=== PATIENT | female | born 1980 | race Caucasian/White ===

== ENCOUNTER → 2017-02-27 | Outpatient (CLI) | payer OTHER ==
[~2017-02-27] MED LIST: BIOTCAP2 PO; DICY20TA35 PO; DOXE10CA PO; FENT50DI19 TD; FLAX100019 PO; FLUO20CA36 PO; FOLI1TAB7 PO; GABA800T PO; HYDR-3126 PO; HYDR200T5 PO; KLN1 PO; MAGN250T3 PO; MTH25 PO; OMEP20CA9 PO; ONDA4TAB46 PO; OXYC-164 PO; POTA550T4 PO; PRZ/40 PO; TURM1CAP4 PO
--- NOTE | 2017-03-19 16:00 | EEG Procedure Note ---
EEG Procedure Note Date of Service Feb 27, 2017. Start / End Times Start Time: 02/27/17 @ 2:57pm End Time: 03/01/17 @ 11:43am Referring Physician Lisa Burr DO History 36 year old female with seizure like activity. Ambulatory EEG for spell capture and further evaluation of seizure like activity. Home Medication List Scheduled Biotin (Biotin 5000), 5 MG PO DAILY Clonazepam (Clonazepam), 2 MG PO BID Dicyclomine Hcl (Bentyl), 20 MG PO QID Doxepin Hcl (Sinequan), 10 MG PO BID Fentanyl (Duragesic), 50 MCG TD [id number] Flaxseed (Linseed) (Flaxseed Oil 1000 mg), 1 CAP PO DAILY Fluoxetine HCl (Fluoxetine HCl), 20 MG PO DAILY Fluoxetine Hcl (Prozac), 40 MG PO DAILY Folic Acid (Folvite), 1 MG PO HS Gabapentin (Neurontin), 800 MG PO QID Hydroxychloroquine Sulfate (Plaquenil), 200 MG PO BID Hydroxyzine Hcl (Atarax), 50 MG PO HS Magnesium (Magnesium 250 mg), 1 TAB PO DAILY Methotrexate (Methotrexate), 4 TABS PO WK Omeprazole (Prilosec), 20 MG PO DAILY Oxycodone Hcl (Oxycodone Hcl), 10 MG PO DAILY Potassium Gluconate (Potassium Gluconate), 550 MG PO DAILY Turmeric (Curcuma Longa) (Turmeric), 500 MG PO DAILY Scheduled PRN Ondansetron Hcl (Zofran), 4 MG PO Q6 PRN for Nausea Description This is a 21 electrode ambulatory EEG with a single channel dedicated to limited EKG. The electrodes were placed in accordance with the International 10- 20 system. Day 2 was of fair EEG quality secondary to diffuse intermittent electrode artifact and movement which became severe after 9pm on February 28, severely limiting the read of the EEG after that time. At the start of the recording the patient was in an awake state. The background was well organized and composed of symmetric mixed alpha and beta frequencies. There was a well formed symmetric moderate amplitude posterior dominant rhythm of 9-10Hz that was reactive to eye opening and closure. Sleep was indicated by vertex waves and symmetric sleep spindles. Patient journal was not returned and no clinical events were reported. Interpretation This is a normal 48hr ambulatory EEG There was no electrographic seizures or epileptiform discharges. Clinical Correlation A normal EEG does not rule out epilepsy if there is a strong clinical suspicion or for clinical events not captured. The read and interpretation on Day 2 of this ambulatory EEG was limited secondary to diffuse artifact.
== END | disposition home or self-care (01) ==
LOC: C.NEUR 14:15
PROVIDERS: ATTEND Psychiatry & Neurology Neurology
DX: R56.9 Unspecified convulsions (principal)

== ENCOUNTER → 2017-08-16 | Outpatient (CLI) | payer OTHER ==
[~2017-08-16] MED LIST changes: +OPTIRAY 320 IV PRN
--- NOTE | 2017-08-16 13:31 | DIAGNOSTIC IMAGING REPORT ---
CT SCAN OF THE ABDOMEN AND PELVIS WITH IV CONTRAST CLINICAL HISTORY: Fever of unknown origin. COMPARISON STUDY: Abdominal ultrasound dated 06/18/2015. TECHNIQUE: Following the IV administration of 92 cc of Optiray 320, CT scan of the abdomen and pelvis is performed from the lung bases to the proximal femora. Images are reviewed in the axial, sagittal, and coronal planes. IV contrast was administered without complication. A dose lowering technique was utilized adhering to the principles of ALARA. FINDINGS: Lung bases: The heart is normal in size and without pericardial effusion. The lung bases are clear noting dependent atelectasis. Liver: The contrast-enhanced liver is enlarged, measuring 21.8 cm in length. The liver demonstrates diffusely diminished attenuation consistent with hepatic steatosis. More focal fatty infiltration is noted adjacent to falciform ligament. There is no intrahepatic biliary ductal dilatation. The hepatic veins and portal veins are patent. Gallbladder: Unremarkable. Spleen: Normal in size and attenuation. Pancreas: Unremarkable. Adrenal glands: Unremarkable. Kidneys: The contrast enhanced kidneys are normal in size and without hydronephrosis. The kidneys enhance symmetrically. Abdominal vasculature: The abdominal aorta is normal in course and caliber. Bowel: The small bowel and colon are normal in course and caliber. The appendix is normal as visualized. Peritoneum: There is no intraperitoneal free air or abdominal ascites. There is a fat-containing umbilical hernia. Lymphadenopathy: None. Pelvic viscera: The bladder is decompressed and grossly unremarkable. The uterus and adnexa are normal as imaged noting bilateral ovarian follicles. Skeletal structures: No lytic or blastic lesions are seen. IMPRESSION: 1. There are no acute infectious or inflammatory findings in the abdomen or pelvis. 2. Hepatomegaly and hepatic steatosis. Electronically signed by: Nas Boyer M.D. 08/16/2017 1:30 PM Dictated Date/Time: 08/16/2017 1:25 PM
--- NOTE | 2017-08-16 13:38 | DIAGNOSTIC IMAGING REPORT ---
THYROID ULTRASONOGRAPHY CLINICAL HISTORY: Thyroid nodule. Fever of unknown origin. COMPARISON STUDY: No previous studies for comparison. FINDINGS: The right lobe measures 20 x 52 x 14 mm. There is a circumscribed rounded partially solid and cystic lower pole right lobe nodule measuring 15 x 14 x 12 mm. Left lobe measures 17 x 41 x 15 mm. IMPRESSION: Low suspicion but indeterminate 15 mm solitary lower pole right lobe thyroid nodule. This nodule would be amenable to fine-needle aspiration as deemed clinically indicated. Electronically signed by: Aguilar Borrero M.D. 08/16/2017 1:37 PM Dictated Date/Time: 08/16/2017 1:34 PM
--- NOTE | 2017-08-16 13:44 | DIAGNOSTIC IMAGING REPORT ---
CT OF THE CHEST WITH IV CONTRAST CLINICAL HISTORY: MIGRAINES FEVER OF UNKNOWN ORIGIN COMPARISON STUDY: No previous studies for comparison. TECHNIQUE: Following the IV administration of 92 mL of Optiray-320, CT of the thorax was performed from the thoracic inlet to the lung bases. Images are reviewed in the axial, sagittal, and coronal planes. IV contrast was administered without complication. A dose lowering technique was utilized adhering to the principles of ALARA. CT DOSE: 1200.70 mGycm FINDINGS: Thyroid: There is a 15 mm right lobe thyroid nodule. Thoracic aorta: The thoracic aorta is normal in course and caliber, noting standard 3-vessel arch anatomy. No aneurysm or dissection is seen. Pulmonary vasculature: The pulmonary trunk is normal in caliber. There are no central filling defects identified to suggest pulmonary embolus. Note that this examination was not protocoled for the evaluation of pulmonary emboli. HEART: The heart is normal in size and configuration, without pericardial effusion. Lungs and pleural spaces: There are dependent groundglass opacities, likely atelectatic. There is no lobar consolidation. Mediastinum: There is no mediastinal lymphadenopathy. Radha: Clear. Axilla: Clear. Upper abdomen: Partially visualized upper abdominal viscera is within normal limits. Skeletal structures: There are no lytic or blastic osseous lesions. IMPRESSION: 1. 15 mm right lobe thyroid nodule 2. No acute intrathoracic findings. Electronically signed by: Aguilar Borrero M.D. 08/16/2017 1:42 PM Dictated Date/Time: 08/16/2017 1:39 PM
== END | disposition home or self-care (01) ==
LOC: C.ULTR 12:06
PROVIDERS: ATTEND Family Medicine
DX: E04.1 Nontoxic single thyroid nodule (principal); R50.9 Fever, unspecified; R16.0 Hepatomegaly, not elsewhere classified; K76.0 Fatty (change of) liver, not elsewhere classified

== ENCOUNTER 2020-05-28 04:13 | Inpatient (IN) ==
--- OUTSIDE RECORDS SUMMARY | 2020-05-28 04:15 | External Medical Summary | Continuity of Care Document ---
:1980 Author Name Mireille Mejia, Provider Address Unavailable Unavailable , Care Team Providers Name Role Phone Shazia Hurley DO Unavailable [email or web address] Luis Fernando Mejia, Sara Unavailable [email or web address] Lisa Burr DO Unavailable [email or web address] DARIN INFANTE Unavailable Unavailable ROZIYAZAN, S Unavailable Unavailable Unavailable Unavailable Unavailable Problems Migraine headache (346.90) (G43.909) Drug dependence (304.90) (F19.20) Depression with anxiety (300.4) (F41.8) Pain disorder (780.96) (R52) Systemic lupus erythematosus (710.0) (M32.9) Current smoker (305.1) (F17.200) Seizure-like activity (780.39) (R56.9) Chronic migraine (346.70) (G43.709) Sjoegren syndrome (710.2) (M35.00) Panic attacks (300.01) (F41.0) Hepatitis C virus (070.70) (B19.20) Indigestion (536.8) (K30) Limb pain (729.5) (M79.609) Blood in urine (599.70) (R31.9) Insomnia (780.52) (G47.00) Esophageal reflux (530.81) (K21.9) Lumbago (724.2) (M54.5) Fatty liver disease, nonalcoholic (571.8) (K76.0) Enthesopathy of hip (726.5) (M76.899) Cramp of limb (729.82) (R25.2) Allergies and Adverse Reactions Imitrex (Allergy) Penicillins (Allergy) Topamax (Allergy) Medications Hydroxychloroquine Sulfate 200 MG Oral T ablet; TAKE 1 TABLET TWICE DAILY WITH FOOD. DO Shazia Hurley Start: 31-Jul-2014 Refills: 0 oxyCODONE HCl - 15 MG Oral Tablet; TAKE 1 TABLET EVERY 6 HOURS NEEDED FOR PAIN. DO Shazia Hurley Start: 31-Jul-2014 Refills: 0 predniSONE 10 MG Oral Tablet; TAKE 1 TABLET Daily PRN DO Shazia Harmon Start: 31-Jul-2014 Refills: 0 Neurontin 400 MG Oral Capsule; TAKE 2 CAPSULE 4 times daily Start: 31-Jul-2014 Refills: 0 LORazepam 1 MG Oral Tablet; TAKE 1 TABLE T by mouth 30 MINUTES PRIOR TO MRI. May repeat once after 30min if needed. DO Lisa Burr Start: 20-Dec-2016 Quantity: 2 Refills: 0 fentaNYL 50 MCG/HR Transdermal Patch 72 Hour; APPLY 1 PATCH EVERY 3 DAYS Quantity: 10 Refills: 0 Methotrexate 2.5 MG Oral Tablet; TAKE 6 TABLET Weekly Refills: 0 PROzac 40 MG Oral Capsule; TAKE 1 CAPSULE Daily Refills: 0 KlonoPIN 2 MG Oral Tablet; TAKE 1 TABLET Twice daily PRN Refills: 0 Probiotic CAPS Refills: 0 Magnesium 250 MG Oral Tablet; TAKE 1 TABLET DAILY. Refills: 0 Biotin 5000 MCG Oral Capsule; TAKE 1 CAPSULE DAILY. Refills: 0 Prochlorperazine Maleate 10 MG Oral Tabl et; TAKE 1 TABLET EVERY 6 HOURS NEEDED FOR NAUSEA or migraine headache. DO Lisa Burr Start: 2016 Quantity: 30 Refills: 5 Diclofenac Potassium 50 MG Oral Tablet; TAKE 1 TABLET every 8hrs as needed for headache. DO Lisa Burr Start: 20-Dec-2016 Quantity: 30 Refills: 3 Inderal XL 80 MG Oral Capsule Extended Release 24 Hour ; 1 cap daily DO Lisa Burr Start: 20-Dec-2016 Quantity: 30 Refills: 5 hydrOXYzine HCl - 50 MG Oral Tablet; JENNIFER E 1 TABLET 3 TIMES DAILY NEEDED FOR ITCHING. DO Shazia Hurley Start: 31-Jul-2014 Refills: 0 Procedures Procedures not documented Immunizations Influenza (Split) On: 22-Oct-2013 0:00 Family History Mother Family history of diabetes mellitus (V18.0) (Z83.3) Status: Active Family history of hypertension (V17.49) (Z82.49) Status: Act mary Family history of hepatic cirrhosis (V18.59) (Z83.79) Status : Active Family history of deep venous thrombosis (V17.49) (Z82.49) S tatus: Active Family history of Sjogren's disease (V17.89) (Z82.69) Status : Active Family history of depression (V17.0) (Z81.8) Status: Active Father Family history of diabetes mellitus (V18.0) (Z83.3) Status: Active Family history of hypertension (V17.49) (Z82.49) Status: Act mary Family history of hypercholesterolemia (V18.19) (Z83.42) Sta tus: Active Family history of substance abuse (V17.0) (Z81.4) Status: Ac tive Sibling Family history of diabetes mellitus (V18.0) (Z83.3) Status: Active Family history of hypertension (V17.49) (Z82.49) Status: Act mary Family history of deep venous thrombosis (V17.49) (Z82.49) S tatus: Active Sister Family history of deep venous thrombosis (V17.49) (Z82.49) S tatus: Active Family history of depression (V17.0) (Z81.8) Status: Active Family history of anemia (V18.2) (Z83.2) Status: Active Family history of blood dyscrasia (V18.3) (Z83.2) Status: Ac tive aunt Family history of substance abuse (V17.0) (Z81.4) Status: Ac tive Grandmother Family history of skin cancer (V16.8) (Z80.8) Status: Active Social History - Smoking Status Smoker Plan of Treatment Planned Observations Planned Goals not documented Results No Known Results Results not documented Encounters Appointment; Sara Gould M.D. 10-Apr-2019 9:30 Encounter Diagnosis: Problem not documented
[2020-05-28 04:50] LABS: Appearance Urine Cloudy (Clear); Bacteria Urine Automated 1+ (Negative); Blood Urine Trace (Negative); Color Urine Dark Yellow; Glucose Urine UA Negative (Negative); Ketones Urine 1+ (Negative); Leukocyte Esterase Urine Trace (Negative); Nitrite Urine Negative (Negative); Protein Urine 2+ (Negative); Specific Gravity Urine 1.037 (1.000-1.030); Urobilinogen Urine Negative (Negative)
[2020-05-28 05:02] LABS: Bilirubin Urine Negative (Negative); Ictotest Urine Negative (Negative)
[2020-05-28 05:11] LABS: Cast Urine Automated 0 /lpf (0-5); WBC Urine Automated >30 /hpf (0-5)
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
[2020-05-28 05:14] LABS: Amphetamines+Metham, Urine Pos (Neg); Barbiturates, Urine Neg (Neg); Benzodiazepine, Urine Pos (Neg); Cocaine, Urine Neg (Neg); MDMA (Ecstacy), Urine Pos (Neg); Methadone, Urine Neg (Neg); Opiate, Urine Pos (Neg); Phencyclidine, Urine Neg (Neg)
[2020-05-28 05:26] LABS: Basophils # (auto) 0.02 K/uL (0-0.2); Basophils % (auto) 0.2 %; Eosinophils # (auto) 0.01 K/uL (0-0.5); Eosinophils % (auto) 0.1 %; Hematocrit (blood only) 37.3 % (37-47); Hemoglobin 12.1 g/dL (12.0-16.0); Immature Granulocytes # (auto) 0.01 K/uL (0.00-0.02); Immature Granulocytes % (auto) 0.1 %; Lymphocytes # (auto) 1.85 K/uL (1.2-3.4); Lymphocytes % (auto) 19.7 %; Mean Corpuscular Hemoglobin 27.6 pg (25-34); Mean Corpuscular Hgb Conc 32.4 g/dL (32-36); Mean Corpuscular Volume 85.2 fL (80-100); Mean Platelet Volume 8.9 fL (7.4-10.4); Monocytes # (auto) 0.91 K/uL (0.11-0.59); Monocytes % (auto) 9.7 %; Neutrophils # (auto) 6.57 K/uL (1.4-6.5); Neutrophils % (auto) 70.2 %; Platelet Count 340 K/uL (130-400); RDW Coefficient of Variation 12.9 % (11.5-14.5); RDW Standard Deviation 40.1 fL (36.4-46.3); Red Blood Count 4.38 M/uL (4.2-5.4); White Blood Count 9.37 K/uL (4.8-10.8)
[2020-05-28 05:43] LABS: Calcium 8.8 mg/dl (8.5-10.1); Creatinine Clr Calc Pharmacy 87.4 ml/min; Est GFR (Non-African American) 110.4; Potassium 3.2 mmol/L (3.5-5.1)
[2020-05-28] MEDS ORDERED: cephALEXin 250 MG CAP PO ONE (05:48)
[2020-05-28 05:53] LABS: Albumin Globulin Ratio 1.1 (0.9-2); Bilirubin,Total 0.4 mg/dl (0.2-1); Globulin 3.7 gm/dl (2.5-4.0); Thyroid Stimulating Hormone 1.93 uIu/ml (0.300-4.500); Total Protein 7.7 gm/dl (6.4-8.2)
[2020-05-28 05:56] LABS: Acetaminophen < 2 ug/ml (10-30)
[2020-05-28 05:57] LABS: Salicylate 4.2 mg/dl (2.8-20)
[2020-05-28] MEDS ORDERED: POTASSIUM CHLORIDE 20 MEQ TABCR PO STA (06:03)
[2020-05-28 06:27] LABS: Pregnancy Test, Serum Negative (Negative)
[2020-05-28] MEDS ORDERED: GABAPENTIN 800 MG TAB PO STA (08:10)
[2020-05-28] MEDS ORDERED: OXYCODONE HCL IR 5 MG TAB (IMMEDIATE RELEASE) PO STA (08:10)
[2020-05-28] MEDS ORDERED: clonazePAM 1 MG TAB PO STA (08:10)
[2020-05-28] MEDS ORDERED: FLUOXETINE HCL 20 MG CAP PO ONE (08:10)
[2020-05-28] MEDS ORDERED: HYDROXYCHLOROQUINE SULFATE 200 MG TAB PO STA (08:10)
[2020-05-28] MEDS ORDERED: NICOTINE 21 MG/24 HR TDSY TD STA (08:17)
[2020-05-28] MEDS ORDERED: ACETAMINOPHEN 325 MG TAB PO PRN (13:27)
[2020-05-28] MEDS ORDERED: BISMUTH SUBSALICYLATE PER ML OMNICELL CHARGE PO PRN (13:27)
[2020-05-28] MEDS ORDERED: ALUMINUM/MAGNESIUM SUSP 30 ML UDC PO PRN (13:27)
[2020-05-28] MEDS ORDERED: SODIUM CHLORIDE 0.65% NA SOLN 45 ML (OCEAN) PRN (13:27)
[2020-05-28] MEDS ORDERED: MAGNESIUM HYDROXIDE SUSP 30 ML UDC PO PRN (13:27)
[2020-05-28] MEDS ORDERED: QUETIAPINE FUMARATE 25 MG TABLET PO PRN (13:36)
[2020-05-28] MEDS ORDERED: FENTANYL 50 MCG TD SCH (13:45)
--- NOTE | 2020-05-28 16:21 | Electrocardiogram Report ---
Test Reason : Blood Pressure : / mmHG Vent. Rate : 071 BPM Atrial Rate : 234 BPM P-R Int : 140 ms QRS Dur : 084 ms QT Int : 402 ms P-R-T Axes : -30 059 019 degrees QTc Int : 436 ms Poor data quality, interpretation may be adversely affected Probable Normal sinus rhythm Nonspecific T wave abnormality Inferior leads Abnormal ECG When compared with ECG of 14-JUL-2016 06:10, No significant change Confirmed by Artur Haque ([id number]) on 05/28/2020 4:21:02 PM Referred By: REFERRED SELF Confirmed By:Artur Haque
[2020-05-28] MEDS: OXYCODONE HCL IR 5 MG TAB (IMMEDIATE RELEASE) PO PRN (16:25)
--- NOTE | 2020-05-28 16:58 | Emergency Department Note ---
ED Visit Note I received this patient in signout at the change of shift from Dr. Aliyah Samson, pending mental health evaluation and final disposition. The patient was signed in on a 302 and accepted by 3 S. for further management. Please see previous documentation for further details of the history, physical and visit. . : Depression Qualifiers: Depression Type: unspecified Qualified Code(s): F32.9 - Major depressive disorder, single episode, unspecified UTI (urinary tract infection) Qualifiers: Urinary tract infection type: acute cystitis Hematuria presence: with hematuria Qualified Code(s): N30.01 - Acute cystitis with hematuria
[2020-05-28] MEDS: CHECK FENTANYL PATCH PLACEMENT SCH (18:05)
[2020-05-28] MEDS: cephALEXin 500 MG CAP PO SCH (21:04)
[2020-05-28] MEDS: clonazePAM 1 MG TAB PO SCH (21:05)
[2020-05-28] MEDS: HYDROXYCHLOROQUINE SULFATE 200 MG TAB PO SCH (21:06)
[2020-05-28] MEDS: QUETIAPINE FUMARATE 100 MG TABLET PO SCH (21:06)
[2020-05-29] MEDS: CHECK FENTANYL PATCH PLACEMENT SCH ×3 (01:13→17:36)
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
[2020-05-29 08:04] LABS: Potassium 3.3 mmol/L (3.5-5.1)
[2020-05-29] MEDS: DICYCLOMINE HCL 10 MG CAP PO SCH (08:47)
[2020-05-29] MEDS: cephALEXin 500 MG CAP PO SCH ×2 (08:49→21:11)
[2020-05-29] MEDS: FLUOXETINE HCL 20 MG CAP PO SCH (08:49)
[2020-05-29] MEDS: clonazePAM 1 MG TAB PO SCH ×2 (08:49→21:09)
[2020-05-29] MEDS: OXYCODONE HCL IR 5 MG TAB (IMMEDIATE RELEASE) PO PRN ×3 (08:50→21:10)
[2020-05-29] MEDS: HYDROXYCHLOROQUINE SULFATE 200 MG TAB PO SCH ×2 (08:56→21:57)
[2020-05-29] MEDS ORDERED: GABAPENTIN 800 MG TAB PO SCH (09:00)
[2020-05-29] MEDS ORDERED: NICOTINE POLACRILEX 2 MG GUM MT PRN (09:17)
[2020-05-29] MEDS ORDERED: GABAPENTIN 800 MG TAB PO ONE (10:20)
[2020-05-29] MEDS ORDERED: POTASSIUM CHLORIDE 20 MEQ TABCR PO ONE (10:23)
[2020-05-29] MEDS: NICOTINE 21 MG/24 HR TDSY TD SCH (11:49)
[2020-05-29] MEDS ORDERED: IBUPROFEN 600 MG TAB PO PRN (13:59)
[2020-05-29] MEDS: QUETIAPINE FUMARATE 25 MG TABLET PO SCH (17:38)
[2020-05-29] MEDS: GABAPENTIN 800 MG TAB PO SCH (21:12)
[2020-05-29] MEDS: QUETIAPINE FUMARATE 100 MG TABLET PO SCH (21:13)
[2020-05-30] MEDS: CHECK FENTANYL PATCH PLACEMENT SCH ×3 (00:11→17:32)
[2020-05-30] MEDS ORDERED: fentaNYL 50 MCG/HR TDSY TD SCH (09:00)
[2020-05-30] MEDS: OXYCODONE HCL IR 5 MG TAB (IMMEDIATE RELEASE) PO PRN ×2 (09:08→16:15)
[2020-05-30] MEDS: HYDROXYCHLOROQUINE SULFATE 200 MG TAB PO SCH ×2 (09:08→21:16)
[2020-05-30] MEDS: PHENTERMINE 37.5 MG PO PRN (09:08)
[2020-05-30] MEDS: FLUOXETINE HCL 20 MG CAP PO SCH (09:09)
[2020-05-30] MEDS: DICYCLOMINE HCL 10 MG CAP PO SCH (09:09)
[2020-05-30] MEDS: cephALEXin 500 MG CAP PO SCH ×2 (09:10→21:10)
[2020-05-30] MEDS: GABAPENTIN 800 MG TAB PO SCH ×2 (09:10→21:15)
[2020-05-30] MEDS: clonazePAM 1 MG TAB PO SCH ×2 (09:10→21:19)
[2020-05-30] MEDS: NICOTINE 21 MG/24 HR TDSY TD SCH (09:28)
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
[2020-05-30] MEDS: QUETIAPINE FUMARATE 25 MG TABLET PO SCH (16:14)
[2020-05-30] MEDS ORDERED: metHOTREXate sodium 2.5 MG TAB PO SCH (21:00)
[2020-05-30] MEDS: QUETIAPINE FUMARATE 100 MG TABLET PO SCH (21:16)
[2020-05-31] MEDS: CHECK FENTANYL PATCH PLACEMENT SCH ×2 (00:07→08:25)
[2020-05-31] MEDS: GABAPENTIN 800 MG TAB PO SCH (08:14)
[2020-05-31] MEDS: DICYCLOMINE HCL 10 MG CAP PO SCH (08:15)
[2020-05-31] MEDS: clonazePAM 1 MG TAB PO SCH (08:15)
[2020-05-31] MEDS: NICOTINE 21 MG/24 HR TDSY TD SCH (08:15)
[2020-05-31] MEDS: FLUOXETINE HCL 20 MG CAP PO SCH (08:16)
[2020-05-31] MEDS: cephALEXin 500 MG CAP PO SCH (08:17)
[2020-05-31] MEDS: OXYCODONE HCL IR 5 MG TAB (IMMEDIATE RELEASE) PO PRN (08:46)
[2020-05-31] MEDS: HYDROXYCHLOROQUINE SULFATE 200 MG TAB PO SCH (08:47)
[2020-05-31] MEDS: PHENTERMINE 37.5 MG PO PRN (08:47)
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
[2020-06-02 10:09] LABS: 7-Aminoclonaz, Confirm >2000 ng/mL (<25); Amphetamine Urine, Confirm 2210 ng/mL (<250); Codeine Urine NEGATIVE ng/mL (<50); Hydro-Alp Ur, GC/MS 1110 ng/mL (<25); Hydrocodone Urine NEGATIVE ng/mL (<50); Hydromor Urine NEGATIVE ng/mL (<50); Hydroxyethylflurazepam, Conf NEGATIVE ng/mL (<50); Hydroxymidazolam Ur, GC/MS NEGATIVE ng/mL (<50); Hydroxytriazolam NEGATIVE ng/mL (<50); Lorazepam, Ur GC/MS NEGATIVE ng/mL (<50); MDA negative; MDEA negative; MDMA (Ecstasy) Urine, Confirm negative; Marijuana Quant, GCMS Urine 1350 ng/mL (<5); Methamphetamine, Ur Confirm >15000 ng/mL (<250); Morphine Urine NEGATIVE ng/mL (<50); Nordiazepam, Confirm 336 ng/mL (<50); Norhydrocodone Conf Ur NEGATIVE ng/mL (<50); Noroxycodone Urine 7270 ng/mL (<50); Oxazepam Ur, GC/MS >2000 ng/mL (<50); Oxycodone Urine 737 ng/mL (<50); Oxymorph Urine 274 ng/mL (<50); Temazepam, Confirm 1920 ng/mL (<50)
== END 2020-05-31 10:40 | disposition home or self-care (01) | DRG 881 ==
LOC: ED 04:13 → 3S 13:28